=== PATIENT | male | born 1970 | race Caucasian/White ===

== ENCOUNTER 2022-06-23 08:12 | Emergency (ER) | payer OTHER, SELFPAY ==
--- NOTE | ~2022-06-23 | XR_ITS ---
EXAMINATION: XR knee LT min 4V DATE: 06/23/2022 08:40 INDICATION: Medial left knee pain with flexion TECHNIQUE: Anteroposterior, 2 oblique and crosstable lateral views of the left knee were obtained COMPARISON: None. FINDINGS: Alignment is normal. No fracture. Joint spaces appear normal on nonweightbearing imaging. No joint e ffusion/layering lipohemarthrosis. Soft tissues are unremarkable. IMPRESSION: 1. Negative left knee radiographs. Reviewed, dictated and finalized at location A.
[2022-06-23 08:19] VITALS: BP 151/77; PULSE 86; RESP 16; TEMP 35.5; O2SAT 99
--- NOTE | 2022-06-23 08:31 | ED.GENADULT ---
HPI - General Adult General Chief complaint: Extremity Injury, Lower Stated complaint: Left Knee Injury Source: patient and family Mode of arrival: ambulatory Limitations: no limitations History of Present Illness HPI narrative: Patient presents for evaluation of left knee pain for last 2 days. He indicates he was walking on a treadmill at the gym at the time of symptom onset. He felt a tweak in the anterior aspect of the left knee. Pain has progressively worsened since that time. Primarily notes the pain when his knee is flexed. Extension does help alleviate his pain. With flexion his pain is 8/10 in severity. At rest, his pain is 1/10. She has tried meloxicam and flexeril with minimal improvement in his pain thereafter. Denies any redness, warmth, drainage. No history of pain or injury in the affected joint. Related Data Home Medications Medication Instructions Recorded Confirmed lisinopril 20 tablet 06/23/22 mg-hydrochlorothiazide 25 mg tablet meloxicam 15 mg tablet mg 06/23/22 omeprazole 06/23/22 Allergies Allergy/AdvReac Type Severity Reaction Status Date / Time Contrast Media Allergy Unknown Uncoded 04/27/18 10:59 Review of Systems Review of Systems: CONSTITUTIONAL: Denies fever, chills, or sweats. EYES: Denies visual changes, redness, or discharge. ENT: Denies rhinorrhea, congestion, sore throat, or otalgia. CARDIOVASCULAR: Denies chest pain, palpitations, or edema. RESPIRATORY: Denies cough or dyspnea. GASTROINTESTINAL: Denies abdominal pain, nausea, vomiting, or diarrhea. GENITOURINARY: Denies dysuria or hematuria. SKIN: Denies rash or itching. MUSCULOSKELETAL: Reports left knee pain. NEUROLOGIC: Denies headache, numbness, dizziness, or weakness. PSYCHIATRIC: Denies anxiety or depression. [facility], [facility] Past Medical History Medical History (Updated 06/23/22 @ 09:04 by TEDDY Linder, [place]) Hypertension Knee strain Surgical History Surgical History History of sinus surgery Hx of inguinal hernia surgery Family History Family History Mother Family history non-contributory Social History Social History (Reviewed 06/23/22 @ 08:35 by Willian De La Vega, [facility], ) Smoking status: Never smoker Substance use: never Living arrangements: with family Gender identity (if verbalized by the patient): Male Sexual Orientation (if Verbalized by the Patient): Straight or Heterosexual Spiritual care concerns: No Exam Narrative: GENERAL: Well-appearing, well-nourished, and in no acute distress. HEAD: Normocephalic, atraumatic. EYES: PERRLA and EOMI. ENT: Nares clear, no rhinorrhea or epistaxis. Mucous membranes moist. Oropharynx without tonsillar hypertrophy exudate or other lesions. Bilateral TMs pearly ruiz nonbulging NECK: Supple. No adenopathy or masses. No carotid bruits or JVD CHEST: Clear to auscultation. No respiratory distress. No wheezes rales or rhonchi HEART: Regular rate and rhythm. No murmur heard. Normal peripheral pulses. ABDOMEN: Soft, nontender, nondistended, normal active bowel sounds. EXTREMITIES: Anterior aspect of left knee is tender to palpation. No obvious deformity or swelling. No warmth. Decreased range of motion in the left knee secondary to pain. Negative anterior and posterior drawer. SKIN: Warm, dry, no rash. NEURO: No focal deficits. Alert and oriented x3. PSYCH: Normal mood and affect. Course Course Emergency Course: This is a 51-year-old male who presented for evaluation of left knee pain. X-ray negative for fracture. Pain refractory to meloxicam and Flexeril. Will give him a prescription for tramadol and advised a follow-up with orthopedics. He can purchase a knee immobilizer/hinge knee brace. Advised on RICE therapy. Go to ER for intractable pain. Pt in agreement with plan of care. Level of Care: Expre
--- NOTE | 2022-06-23 08:42 | PC.NURSE ---
PT DECLINED WHEELCHAIR AND ICE FOR COMFORT
== END 2022-06-23 09:13 | disposition home or self-care (01) ==
PROVIDERS: Emergency Provider Nurse Practitioner; PCP Family Medicine
DX: S86.912A Strain of unspecified muscle(s) and tendon(s) at lower leg level, left leg, initial encounter (principal); X58.XXXA Exposure to other specified factors, initial encounter; Y93.A1 Activity, exercise machines primarily for cardiorespiratory conditioning; I10 Essential (primary) hypertension
CPT/HCPCS: 73564; 99203; G0463

== ENCOUNTER 2022-07-03 15:30 | Outpatient (NON) | payer OTHER, SELFPAY ==
[2022-07-03 20:52] LABS: Source Synovial Fluid Synovial fluid
[2022-07-03 20:53] LABS: Appearance Synovial Fluid Cloudy (Clear); Color Synovial Fluid Yellow (Colorless); Lymphocytes Synovial Fluid 2 %; Monocytes Synovial Fluid 16 %; Neutrophils Synovial Fluid 82 % (0-25); Nucleated Cell Synovial Fluid 24250 /uL (0-200); RBC Synovial Fluid < 2000 /uL (0-0)
[2022-07-03 21:08] LABS: Crystals Synovial Fluid None Seen (None Seen)
== END 2022-07-03 15:31 | disposition home or self-care (01) ==
PROVIDERS: PCP Family Medicine; Visit Provider Orthopaedic Surgery
DX: M25.462 Effusion, left knee (principal); M25.562 Pain in left knee
CPT/HCPCS: 87070; 87075; 87205; 88108; 89051; 89060

== ENCOUNTER 2023-09-04 14:54 | Emergency (ER) | payer OTHER, SELFPAY ==
[2023-09-04 15:00] VITALS: BP 168/92; PULSE 92; RESP 20; TEMP 36.3; O2SAT 98
--- NOTE | 2023-09-04 15:43 | ED.SOB ---
HPI - SOB/Dyspnea General Chief Complaint: Upper Respiratory Infection Stated Complaint: breathing issue Time Seen by Provider: 09/04/23 15:28 Source: patient, family () and RN notes reviewed Mode of arrival: ambulatory Limitations: no limitations History of Present Illness HPI Narrative: Patient presents today complaining of episodes of feeling that he cannot catch his breath. These have been intermittent in nature since last night. During these episodes he also has some mild chest discomfort. These episodes last anywhere from a few minutes up to 30-45 minutes. During these episodes he uses a pulse ox and has noticed his heart rate drops into the 40s while his pulse ox goes into the low 90s. When these episodes end his vitals return to normal. Denies any URI symptoms such as cough, fever, congestion. No history of asthma or COPD. He tried some Benadryl last night, which helped him sleep. No cardiac history besides hypertension. Related Data Home Medications Medication Instructions Recorded Confirmed lisinopril 20 1 tablet PO DAILY 06/23/22 09/04/23 mg-hydrochlorothiazide 25 mg tablet meloxicam 15 mg tablet 15 mg PO DAILY 06/23/22 09/04/23 aspirin 81 mg capsule 81 mg PO DAILY 07/01/22 09/04/23 fluticasone propionate 50 1 spray intranasal BID 07/01/22 09/04/23 mcg/actuation nasal spray,suspension (Flonase Allergy Relief) multivitamin 1 tablet PO DAILY 07/01/22 09/04/23 omeprazole 20 mg capsule,delayed 20 mg PO DAILY 07/01/22 09/04/23 release cholecalciferol (vitamin D3) 50 50 mcg PO DAILY 10/09/22 09/04/23 mcg (2,000 unit) capsule psyllium husk 0.4 gram capsule 0.4 g PO DAILY 10/09/22 09/04/23 (Metamucil) zinc gluconate 30 mg tablet 30 mg PO DAILY 10/09/22 09/04/23 Allergies Allergy/AdvReac Type Severity Reaction Status Date / Time Iodinated Contrast Media Allergy Severe swelling, Verified 10/09/22 15:48 hives, SOB Review of Systems Review of Systems: CONSTITUTIONAL: Denies body aches, fever, chills, or sweats. EYES: Denies visual changes, redness, or discharge. ENT: Denies rhinorrhea, congestion, sore throat, or otalgia. CARDIOVASCULAR: Denies palpitations, or edema.+ chest discomfort RESPIRATORY: Denies cough. + short of breath GASTROINTESTINAL: Denies abdominal pain, nausea, vomiting, or diarrhea. GENITOURINARY: Denies dysuria or hematuria. SKIN: Denies rash, itching, or wounds. MUSCULOSKELETAL: Denies back pain, joint pain, or myalgia. NEUROLOGIC: Denies headache, numbness, tingling, or weakness. PSYCH: Denies depression or anxiety. [facility] Past Medical History Medical History Chronic sinusitis GERD (gastroesophageal reflux disease) Hypertension Knee strain Positional vertigo Surgical History Surgical History History of sinus surgery Hx of inguinal hernia surgery 1999 Family History Family History Mother Hypertension Cerebrovascular accident Grandparent Cancer Hypertension Cerebrovascular accident Father Heart disease Other Family history non-contributory Social History Social History Smoking status: Never smoker Alcohol intake: never Substance use: never Lack of Transportation: No Lack of Food: Never True Current Housing: I Have Housing Concerned About Future Housing: No Difficulty Paying Gas/Electric Bills: No Difficulty Paying for Meds: No Currently Unemployed: No Education: Bachelor's Degree Living arrangements: with family Occupation/Education: occupation 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
== END 2023-09-04 15:45 | disposition short-term general hospital (02) ==
PROVIDERS: Emergency Provider Nurse Practitioner; PCP Family Medicine
DX: R06.02 Shortness of breath (principal); R07.9 Chest pain, unspecified; K21.9 Gastro-esophageal reflux disease without esophagitis; I10 Essential (primary) hypertension
CPT/HCPCS: 99212; G0463